=== PATIENT | male | born 2000 | race Two or more races ===

== ENCOUNTER 2020-03-25 09:50 | Emergency (ER) | payer OTHER ==
[~2020-03-25] VITALS: Ht 157.5 cm; Wt 65.8 kg
[2020-03-25 10:15] VITALS: BP 118/68
[2020-03-25] MEDS ORDERED: Tetanus/Diptheria/Pertussis IM ONE (10:15)
[2020-03-25] MEDS ORDERED: LORazepam Inj 2mg/ml 1ml IM ONE (10:30)
[2020-03-25] MEDS ORDERED: Haloperidol 5mg/ml Inj IM ONE (10:30)
[2020-03-25 10:55] LABS: HEMATOCRIT 51.1 % (42.0-52.0); HEMOGLOBIN 17.4 G/DL (14.2-18.0); MEAN CORPUSCULAR VOLUME 89 FL (80-99); PLATELET COUNT 230 K/UL (150-450); RED BLOOD COUNT 5.72 M/UL (4.70-6.10); RED CELL DISTRIBUTION WIDTH 11.7 % (11.6-14.8); WHITE BLOOD COUNT 11.9 K/UL (4.8-10.8)
[2020-03-25 11:05] LABS: ANION GAP 15 mmol/L (5-15); BLOOD UREA NITROGEN 8 mg/dL (7-18); CALCIUM 9.8 MG/DL (8.5-10.1); CARBON DIOXIDE 26 MMOL/L (21-32); CHLORIDE 100 MMOL/L (98-107); CREATININE 1.4 MG/DL (0.55-1.30); POTASSIUM 3.5 MMOL/L (3.5-5.1); SODIUM 140 MMOL/L (136-145)
[2020-03-25 11:10] LABS: ALANINE AMINOTRANSFERASE 24 U/L (12-78); ALBUMIN 5.7 G/DL (3.4-5.0); ALBUMIN/GLOBULIN RATIO 1.9 (1.0-2.7); ALKALINE PHOSPHATASE 62 U/L (46-116); ASPARTATE AMINO TRANSFERASE 73 U/L (15-37); BILIRUBIN,TOTAL 0.7 MG/DL (0.2-1.0)
--- NOTE | 2020-03-25 11:37 | Emergency Room Report ---
History of Present Illness General Chief Complaint: Behavioral Complaint Source: Patient Present Illness HPI 19-year-old male presents with abrasions to his hands. Brought in by EMS from boarding care facility. Punched a mirror today. Got agitated. On 5150 hold. No SI but [employer] states patient is danger to others. Patient unwilling to provide any additional history at this time. Denies alcohol or drug use. Tetanus unknown. No other aggravating relieving factors. Denies any other associated symptoms Allergies: Coded Allergies: No Known Allergies (Unverified , 03/25/20) COVID-19 Screening Contact w/high risk pt: No Recent Travel to affected area: No Experienced COVID-19 symptoms?: No COVID-19 Testing performed HR ADVISOR: No Patient History Past Medical History: none Past Surgical History: none Pertinent Family History: none Social History: Denies: smoking, alcohol use, drug use Immunizations: UTD Reviewed Nursing Documentation: PMH: Agreed; PSxH: Agreed Nursing Documentation-PMH Past Medical History: No Stated History Review of Systems All Other Systems: negative except mentioned in HPI Physical Exam Vital Signs Date Time Temp Pulse Resp B/P (MAP) Pulse Ox O2 Delivery O2 Flow Rate FiO2 03/25/20 09:45 98.1 140 22 116/64 (81) 98 Room Air Sp02 EP Interpretation: reviewed, normal General Appearance: no apparent distress, alert, GCS 15, non-toxic Head: normocephalic, atraumatic Eyes: bilateral eye normal inspection, bilateral eye PERRL ENT: hearing grossly normal, normal pharynx, no angioedema, normal voice Neck: full range of motion, supple/symm/no masses Respiratory: chest non-tender, lungs clear, normal breath sounds, speaking full sentences Cardiovascular #1: regular rate, rhythm, no edema Cardiovascular #2: 2+ carotid (R), 2+ carotid (L), 2+ radial (R), 2+ radial (L) , 2+ dorsalis pedis (R), 2+ dorsalis pedis (L) Gastrointestinal: normal bowel sounds, non tender, soft, non-distended, no guarding, no rebound Rectal: deferred Genitourinary: normal inspection, no CVA tenderness Musculoskeletal: back normal, normal range of motion, gait/station normal, non- tender Neurologic: alert, motor strength/tone normal, oriented x3, sensory intact, responsive, speech normal Psychiatric: judgement/insight normal, memory normal, no suicidal/homicidal ideation, no delusions, anxious Reflexes: 3+ bicep (R), 3+ bicep (L), 3+ tricep (R), 3+ tricep (L), 3+ knee (R) , 3+ knee (L) Skin: abrasion - multiple abrasions to hands bilaterally Lymphatic: no adenopathy Medical Decision Making Diagnostic Impression: Primary Impression: Behavioral disorder Additional Impression: Abrasion of hand Qualified Codes: S60.519A - Abrasion of unspecified hand, initial encounter ER Course Hospital Course 19-year-old male presents with bleeding to both hands after punching a mirror. On 5150 hold Differential diagnoses include: Fracture, dislocation, sprain, contusion Clinical course Patient placed on stretcher. After initial history and physical, I ordered TDAP , xrays of both hands Xrays prelim read shows no acute fracture/dislocation. Wounds irrigated. Bacitracin dressings applied. No sutures required Labs unremarkable. Patient became agitated and combative. Given Haldol and Ativan. evaluated by Dr. Guerrero (psychiatry). Agreed that patient is not a danger to self or others. Likely substance related. 5150 hold lifted. I agree with her assessment Patient will be discharged. Will provide referrals Diagnosis - behavioral disorder, abrasion of hand Stable and discharged to home with prescription for bacitracin, keflex. Followup with PMD/psych. Return to ED if symptoms recur or worsen Labs Test 03/25/20 10:40 03/25/20 12:57 White Blood Count 11.9 K/UL (4.8-10.8) Red Blood Count 5.72 M/UL (4.70-6.10) Hemoglobin 17.4 G/DL (14.2-18.0) Hematocrit 51.1 % (42.0-52.0) Mean Corpuscular Volume 89 FL (80-99) Mean Corpuscular Hemoglobin 30.4 PG (27.0-31.0) Mean Corpuscular Hemoglobin Concent 33.9 G/DL (32.0-36.0) Red Cell Distribution Width 11.7 % (11.6-14.8) Platelet Count 230 K/UL (150-450) Mean Platelet Volume 6.7 FL (6.5-10.1) Neutrophils (%) (Auto) % (45.0-75.0) Lymphocytes (%) (Auto) % (20.0-45.0) Monocytes (%) (Auto) % (1.0-10.0) Eosinophils (%) (Auto) % (0.0-3.0) Basophils (%) (Auto) % (0.0-2.0) Differential Total Cells Counted 100 Neutrophils % (Manual) 89 % (45-75) Lymphocytes % (Manual) 7 % (20-45) Monocytes % (Manual) 4 % (1-10) Eosinophils % (Manual) 0 % (0-3) Basophils % (Manual) 0 % (0-2) Band Neutrophils 0 % (0-8) Platelet Estimate Adequate Platelet Morphology Normal Red Blood Cell Morphology Normal Sodium Level 140 MMOL/L (136-145) Potassium Level 3.5 MMOL/L (3.5-5.1) Chloride Level 100 MMOL/L (98-107) Carbon Dioxide Level 26 MMOL/L (21-32) Anion Gap 15 mmol/L (5-15) Blood Urea Nitrogen 8 mg/dL (7-18) Creatinine 1.4 MG/DL (0.55-1.30) Estimat Glomerular Filtration Rate > 60 mL/min (>60) Glucose Level 138 MG/DL (74-106) Calcium Level 9.8 MG/DL (8.5-10.1) Total Bilirubin 0.7 MG/DL (0.2-1.0) Aspartate Amino Transf (AST/SGOT) 73 U/L (15-37) Alanine Aminotransferase (ALT/SGPT) 24 U/L (12-78) Alkaline Phosphatase 62 U/L (46-116) Total Protein 8.7 G/DL (6.4-8.2) Albumin 5.7 G/DL (3.4-5.0) Globulin 3.0 g/dL Albumin/Globulin Ratio 1.9 (1.0-2.7) Salicylates Level 2.4 ug/mL (2.8-20) Acetaminophen Level < 2 MCG/ML (10-30) Serum Alcohol < 3 mg/dL Other X-Ray Diagnostic Results Other X-Ray Diagnostic Results #1: X-Ray ordered: R hand # of Views/Limited Vs Complete: 3 View Indication: Pain EP Interpretation: Yes Interpretation: no dislocation, no soft tissue swelling, no fractures Impression: No acute disease Electronically Signed by: Electronically signed by Tan Stewart MD\ Other X-Ray Diagnostic Results #2: X-Ray ordered: L hand # of Views/Limited Vs Complete: 3 View Indication: Pain EP Interpretation: Yes Interpretation: no dislocation, no soft tissue swelling, no fractures Impression: No acute disease Electronically Signed by: Electronically signed by Tan Stewart MD Last Vital Signs Date Time Temp Pulse Resp B/P (MAP) Pulse Ox O2 Delivery O2 Flow Rate FiO2 03/25/20 10:15 121 22 Room Air 03/25/20 10:15 98.1 118/68 98 Status: improved Disposition: HOME, SELF-CARE Condition: Stable Referrals: NON PHYSICIAN (PCP) Tan Stewart MD Mar 25, 2020 11:37
[2020-03-25 12:30] VITALS: BP 118/68
[2020-03-25] MEDS ORDERED: CEPHALEXIN500 MG ORAL (13:48)
[2020-03-25] MEDS ORDERED: BACITRACIN15 GM TOPIC (13:48)
--- NOTE | 2020-03-25 15:12 | Diagnostic Imaging Report ---
Indication: Right hand pain Technique: 3 views right hand Comparison: none Findings: No acute fractures. No dislocations. The joint spaces are preserved Impression: Negative
--- NOTE | 2020-03-25 15:15 | Diagnostic Imaging Report ---
Indication: Left hand pain Technique: 3 views left hand Comparison: none Findings: No acute fractures. No dislocations. The joint spaces are preserved Impression: Negative
[2020-03-25] MEDS ORDERED: Bacitracin Oint 15gm Tube TOPIC ONE (16:11)
[2020-03-25 17:10] VITALS: BP 121/78
[2020-03-25] MEDS ORDERED: Bacitracin Oint 15gm Tube TOPIC SCH (18:00)
--- NOTE | 2020-03-25 21:45 | Consultation ---
DATE OF CONSULTATION: 03/25/2020 CONSULTING PHYSICIAN: Jeffrey Guerrero MD. HISTORY OF PRESENT ILLNESS: This is a 19-year-old male with a history of drug use who has been admitted to the hospital on 5150 when he became severely agitated at his sober living, started punching the wall. He came to the emergency room. He was disorganized and was wrapping, jumping from one subject to another. He received Haldol as well as Ativan. During the evaluation, he was calm, was able to answer the question. He does not endorse any suicidal or homicidal ideation. Patient is calm and manageable here. PAST PSYCHIATRIC HISTORY: According to his sober living, patient is currently on no psychotropic medication. PAST MEDICAL HISTORY: None known. ALLERGIES: No known drug allergies. SUBSTANCE ABUSE HISTORY: Patient has a history of substance abuse disorder, however, patient is not discussing. MENTAL STATUS EXAMINATION: Patient is alert, oriented times self Mood is neutral. Affect is blunted, congruent with mood. Thought process is linear and goal oriented. Thought content, no suicidal or homicidal ideation. Cognition is intact. Insight and judgment limited. ASSESSMENT: Osgood I Substance use disorder. Substance-induced psychosis. Osgood II Deferred. Osgood III None. Osgood IV Low. Osgood V 50. PLAN: We will discontinue 5150. Patient should be discharged back to the sober living. If not, he will be provided with the resources to [facility]. Provide the patient with reality orientation and supportive therapy. Jeffrey Guerrero M.D. DR: DARRYL JOB#: [id number] CC: SHIVANI
== END 2020-03-25 16:55 | disposition home or self-care (01) ==
LOC: EDBD 09:50 → EMR 10:11
DX: S60.512A Abrasion of left hand, initial encounter (principal); S60.511A Abrasion of right hand, initial encounter; W22.09XA Striking against other stationary object, initial encounter; Y93.9 Activity, unspecified; Y92.9 Unspecified place or not applicable
CPT/HCPCS: 36415; 80053; 80307; 85007; 85025; 90471; 90715; 96372; 99284; G0480